=== PATIENT | male | born 1985 | race American Indian/Alaskan Native ===

== ENCOUNTER 2021-08-02 09:27 | Day surgery (SDC) | payer BC ==
[~2021-08-02 09:27] MED LIST: SODIUM CHLORIDE 0.9% 1000 ML 1,000 ML IV SCH
[2021-08-02] MEDS ORDERED: propofoL 200 MG/20 ML VIAL IV ONE ×2 (09:42→10:23)
[2021-08-02] MEDS ORDERED: LIDOCAINE MPF (2%) 20 MG/1 ML VIAL 5 ML ONE (09:43)
--- NOTE | 2021-08-02 09:53 | Anesthesia Day of Surgery ---
Anesthesia Day of Surgery - Day of Surgery Patient Examined: Yes Patient H&P Reviewed: Yes Patient is NPO: Yes
--- NOTE | 2021-08-02 09:55 | Anesthesia Consultation ---
Anesthesia Consult and Med Hx Date of service: 08/02/21 - Airway Anesthetic Teeth Evaluation: Good ROM Head & Neck: Adequate Mental/Hyoid Distance: Adequate Mallampati Class: Class III Intubation Access Assessment: Possibly Difficult - Pulmonary Exam CTA: Yes - Cardiac Exam Cardiac Exam: RRR - Pre-Operative Health Status ASA Pre-Surgery Classification: ASA3 Proposed Anesthetic Plan: MAC - Pulmonary Hx Sleep Apnea: Yes (cpap) - Cardiovascular System Hx Hypertension: Yes - Central Nervous System CVA: Yes (possible) - Gastrointestinal Hx Gastroesophageal Reflux Disease: Yes - Endocrine Hx Liver Disease: Yes (fatty liver) Hx Non-Insulin Dependent Diabetes: Yes - Other Systems Hx Alcohol Use: Yes (one pint per day) Hx Substance Use: Yes (edibles) Hx Obesity: Yes
[2021-08-02] MEDS ORDERED: MIDAZOLAM 2 MG/2 ML INJ ONE (10:11)
--- NOTE | 2021-08-02 10:26 | Short Stay Summary ---
Short Stay Documentation Date of service: 08/02/21 Narrative H&P: The patient presents for EGD to evaluate n/v. - History Past Medical History: diabetes, hypertension, other (Morbid obesity ( BMI over 60), gout,GERD) Past Surgical History: No surgical history Social history: other (frequent marijuana consumption) - Allergies and Medications Current Medications: Allergies amoxicillin Allergy (Verified 07/29/21 09:23) Swelling Penicillins Allergy (Verified 07/29/21 09:23) Anaphylaxis Home Medications Medication Instructions Recorded Confirmed Last Taken Type Colchicine 0.6 mg PO 07/29/21 Unknown History HCTZ 07/29/21 Unknown History Metformin HCl ER 500 mg PO DAILY 07/29/21 07/29/21 Unknown History Metoprolol Tartrate 07/29/21 Unknown History Naproxen 500 mg PO BID 07/29/21 07/29/21 Unknown History Triamterene 07/29/21 Unknown History Trulicity 1.5 mg SQ 1XW 07/29/21 07/29/21 Unknown History Vitamin D3 07/29/21 Unknown History allopurinoL 07/29/21 Unknown History hydrALAZINE 25 mg PO 07/29/21 Unknown History Active Medications Sodium Chloride (Nacl 0.9% 1000 Ml) 1,000 mls @ 50 mls/hr IV DIRECT DIANA Stop: 08/02/21 20:00 - Physical exam General appearance: no acute distress, well-nourished, obese Integumentary: no rash, no growths, no abnormal pigmentation HEENT: Atraumatic, PERRLA, EOMI, Mucous membr. moist/pink Lungs: Clear to auscultation, Normal air movement Breasts: deferred Heart: Regular rate, Normal S1, Normal S2, No murmurs Gastrointestinal: normoactive bowel sounds, no tenderness, no distended, no masses, no guarding, no organomegaly, obese Male Genitourinary: deferred Rectal Exam: deferred Extremities: no ischemia, pulses intact, pulses symmetrical, No edema, normal temperature, normal color, Full ROM Neurological: Normal gait, Normal speech, Strength at 5/5 X4 ext, Normal tone, Sensation intact, Cranial nerves 3-12 NL - Brief post op/procedure progress note Date of procedure: 08/02/21 Findings: see dictation Estimated blood loss: none Pathology: list (antral biopsies for h pylori) Specimen disposition: to lab Condition: stable - Disposition Condition at discharge: Good Disposition: 01 HOME / SELF CARE / HOMELESS - Discharge Diagnoses (1) Bilious vomiting Status: Acute Short Stay Discharge Plan Activity: other (no driving for 24 hours.) Weight Bearing Status: Weight Bear as Tolerated Diet: diabetic Follow up with: PRIMARY CARE, [Primary Care Provider] - 7 Days
--- NOTE | 2021-08-02 10:29 | Operative Report ---
Operative Report Operative Report: Date of procedure: 08/02/2021 Procedure: Esophagogastroduodenoscopy with antral biopsies for H. pylori Preprocedure diagnosis: Recurrent bilious vomit Post procedure diagnosis: Normal study Endoscopist: Dr. Ellis Anesthesia: Monitored anesthesia care per anesthesia department Medications: Propofol per anesthesia Estimated blood loss: 0 After careful discussion of the nature and purpose of the procedure as well as details the technique risks benefits and alternatives consent was obtained. The patient was placed in the left lateral decubitus position and medicated per anesthesia. The tip of the Entelo EQ 570 video scope was passed per orum under direct vision into the esophagus and advanced into the stomach and descending duodenum. The descending duodenum the duodenal bulb and pylorus were symmetrical and normal. The scope was withdrawn into the stomach and the stomach then gently insufflated with air. The antrum was normal. Biopsies were taken for H. pylori. The stomach was further insufflated and the scope was then retroflexed and partially withdrawn. The cardia, fundus, and body of the stomach were within normal limits and easily distensible.The scope was then withdrawn in the forward position. The esophagogastric junction was at 41 cm. The esophageal body was normal throughout. The procedure was was well tolerated and the patient was observed in recovery. Impressions: Normal-appearing upper digestive tract. Plan: Await biopsies for H. pylori. Patient will call the office in 10 days to discuss the findings and further management. Electronically signed: Garcia Ellis MD
--- NOTE | 2021-08-02 11:00 | Post Anesthesia Evaluation ---
- Post Anesthesia Evaluation Patient Participated: Yes Airway Patent: Yes Stable Respiratory Function: Yes Nausea/Vomiting: No Temp > 96.8F: Yes Pain Manageable: Yes Adequeate Hydration: Yes Anesthesia Complications: No
[2021-08-02 15:22] VITALS: BP 127/74
== END 2021-08-02 11:00 | disposition home or self-care (01) ==
LOC: GIO 09:27
PROVIDERS: ATTEND Internal Medicine Gastroenterology
DX: R11.14 Bilious vomiting (principal); K29.50 Unspecified chronic gastritis without bleeding; B96.81 Helicobacter pylori [H. pylori] as the cause of diseases classified elsewhere; I10 Essential (primary) hypertension; G47.30 Sleep apnea, unspecified; K21.9 Gastro-esophageal reflux disease without esophagitis; E66.9 Obesity, unspecified; E11.9 Type 2 diabetes mellitus without complications; Z87.891 Personal history of nicotine dependence; Z79.899 Other long term (current) drug therapy; Z88.0 Allergy status to penicillin; Z72.89 Other problems related to lifestyle; Z88.6 Allergy status to analgesic agent; Z98.890 Other specified postprocedural states; Z86.73 Personal history of transient ischemic attack (TIA), and cerebral infarction without residual deficits
CPT/HCPCS: 43239; 82962; 88305; 88342; J2250; J2704; J7030